=== PATIENT | male | born 1930 | race American Indian/Alaskan Native ===

== ENCOUNTER 2018-06-28 15:26 | Inpatient (IN) | payer MEDICARE ==
[2018-06-28] MEDS ORDERED: CARDIZEM IV ONE ×3 (17:01→19:08)
--- NOTE | 2018-06-28 17:02 | Emergency Department Report ---
ED General Adult HPI - General Chief complaint: Medical Clearance Stated complaint: WEAKNESS Time Seen by Provider: 06/28/18 16:54 Source: patient, EMS (ems notes not available at time of chart dictation) Mode of arrival: Stretcher Limitations: Other (patient is a poor historian) - History of Present Illness Initial comments: This is an 87-year-old gentleman. The patient is not known to this provider previously. He probably has a history of diabetes, GERD, hypertension, glaucoma, hemodialysis, Sunday. Unknown if he has a history of atrial fibrillation. The patient is sent to the ER by a local [facility] [place] [facility]. Apparently, the patient was recently placed in this [place] [facility], and they have been having issues setting of transportation for dialysis. The patient has apparently not had hemodialysis since Sunday. We do not know who his vet assistant is. The enclosed paperwork does not indicate to his vet assistant is. The patient has no complaints at this provider at this time, and is asking to eat. As per nursing documentation, there may have been facial trauma, in the past 3-4 days, but the patient makes no complaint of this at this time. At one point during his evaluation, he indicated abdominal discomfort but this subsequently resolved. Location: abdomen Quality: other Consistency: other Improves with: other Worsens with: other Associated Symptoms: confusion - Related Data Allergies Allergy/AdvReac Type Severity Reaction Status Date / Time No Known Allergies Allergy Unverified 06/28/18 16:17 ED Review of Systems ROS: Stated complaint: WEAKNESS Other details as noted in HPI Comment: Unobtainable due to pts medical conditions (patient is a poor historian.) Constitutional: denies: fever Gastrointestinal: abdominal pain ED Past Medical Hx - Past Medical History Hx Hypertension: Yes Hx Diabetes: Yes Hx GERD: Yes Hx Renal Disease: Yes (HD MWF) Additional medical history: glaucoma, hearing impaired, chronic respiratory failure - Social History Smoking Status: Former Smoker Substance Use Type: Alcohol ED Physical Exam - General Limitations: Other (patient is a poor historian) General appearance: alert, in no apparent distress - Head Head exam: Present: atraumatic, normocephalic - Eye Eye exam: Present: normal appearance, EOMI, other (there is no evidence of facial trauma. There is no periorbital tenderness. There is no ecchymosis. Irregular pupils noted bilaterally, evidence of chronic appearing cataract surgery noted.) - ENT ENT exam: Present: normal exam, normal orophraynx, mucous membranes moist, normal external ear exam - Neck Neck exam: Present: normal inspection, full ROM. Absent: tenderness, meningismus - Respiratory Respiratory exam: Present: normal lung sounds bilaterally. Absent: respiratory distress - Cardiovascular Cardiovascular Exam: Present: tachycardia, irregular rhythm, normal heart abel nds. Absent: systolic murmur, diastolic murmur, rubs, gallop - GI/Abdominal GI/Abdominal exam: Present: soft. Absent: distended, tenderness, guarding, rebound, rigid, pulsatile mass - Rectal Rectal exam: Present: deferred - Extremities Exam Extremities exam: Present: normal inspection, full ROM, pedal edema, other (2+ pulses noted in the bilateral upper, lower extremities. Compartments soft. No long bony tenderness. The pelvis is stable.). Absent: tenderness, calf tenderness - Back Exam Back exam: Present: normal inspection, full ROM. Absent: tenderness, CVA tenderness (R), paraspinal tenderness, vertebral tenderness - Neurological Exam Neurological exam: Present: alert, other (moving 4 extremities spontaneously. 5 out of 5 strength in 4 extremities. Sensation intact to light touch in 4 extremities. There is no facial droop.) - Psychiatric Psychiatric exam: Present: normal affect, normal mood - Skin Skin exam: Present: warm, dry, intact, normal color. Absent: rash ED Course Vital Signs 06/28/18 06/28/18 06/28/18 16:06 17:34 18:45 Temperature 98.7 F 98.9 F Pulse Rate 136 H 134 H Respiratory 18 Rate Blood Pressure 118/74 O2 Sat by Pulse 100 Oximetry 06/28/18 06/28/18 18:57 19:29 Temperature Pulse Rate 128 H 112 H Respiratory Rate Blood Pressure 106/52 O2 Sat by Pulse Oximetry - Reevaluation(s) Reevaluation #1: 06/28/18 19:12 Differential diagnosis, including not limited to: Pneumonia, urinary tract infection, electrolyte derangement, A. fib with RVR, intracranial abnormality, intra-abdominal infection, constipation Assessment and plan: 87-year-old gentleman on dialysis, with no supportive paperwork at this point in time, with the complaint of resolved abdominal pain. Patient is afebrile, with tachycardia, is found to be in A. fib with RVR. Tachycardia ranging from the 120s to 140s. Hemodynamically stable at this time. Asking to eat. No evidence of acute facial trauma or head trauma noted. No spinal tenderness. Laboratory studies reviewed and are remarkable for chronic renal insufficiency presumably, without concomitant hyperkalemia, or requirement for emergent dialysis at this time. Discussed with nephrology on-call, Dr. Evans, who agrees to follow in consultation and arrange inpatient routine dialysis. Patient received diltiazem IV, 10 mg 2 at this point in time. Heart rate currently 106-1 20 bpm. Additional IV diltiazem ordered, as well as oral diltiazem. Noncontrast CT scan of the brain is negative for acute traumatic disease, incidental ocular findings noted, likely chronic, and he can follow up with an outpatient vending route servicer for this. There is no physical exam evidence to suggest acute trauma or acute ocular decompensation at this time. Noncontrast CT scan of the abdomen and pelvis is pending at this time. Patient will require admission to the hospital for rate control, and further decision on systemic anticoagulation at this point in time. Nursing team has been instructed to obtain the patient's old medical records, medications, from his [facility] [place] [facility], and we are currently awaiting for these to arrive. Reevaluation #2: 06/28/18 19:[address] scan of the abdomen and pelvis to the [place] numerous chronic appearing findings, evidence of pulmonary vascular congestion, but no acute surgical disease. Patient in no acute distress, heart rate 98 bpm at this time, the patient is eating food comfortably. Hospital team was paged to arrange admi ssion. Reevaluation #3: 06/28/18 19:45 Dr Wagoner accepts to Dr Figueroa's service ED Medical Decision Making - Lab Data Result diagrams: 06/28/18 17:27 06/28/18 17:27 Vital Signs 06/28/18 06/28/18 06/28/18 16:06 17:34 18:45 Temperature 98.7 F 98.9 F Pulse Rate 136 H 134 H Respiratory 18 Rate Blood Pressure 118/74 O2 Sat by Pulse 100 Oximetry 06/28/18 18:57 Temperature Pulse Rate 128 H Respiratory Rate Blood Pressure O2 Sat by Pulse Oximetry Labs 06/28/18 06/28/18 06/28/18 17:27 17:27 17:27 WBC 6.5 RBC 4.04 Hgb 11.9 Hct 36.7 MCV 91 MCH 30 MCHC 33 RDW 16.5 H Plt Count 237 PT 17.2 H INR 1.36 H Sodium 137 Potassium 4.9 Chloride 94.5 L Carbon Dioxide 27 Anion Gap 20 BUN 69 H Creatinine 8.8 H Estimated GFR 7 BUN/Creatinine Ratio 8 Glucose 138 H Calcium 9.0 Magnesium 1.90 TSH Blood Type Antibody Screen 06/28/18 06/28/18 17:27 17:27 WBC RBC Hgb Hct MCV MCH MCHC RDW Plt Count PT INR Sodium Potassium Chloride Carbon Dioxide Anion Gap BUN Creatinine Estimated GFR BUN/Creatinine Ratio Glucose Calcium Magnesium TSH 1.030 Blood Type O POSITIVE Antibody Screen Negative - EKG Data -: EKG Interpreted by Me - EKG Data 06/28/18 19:15 Atrial fibrillation, rapid ventricular response, borderline left axis deviation, motion artifact, QTC prolonged, abnormal EKG, not morphologically consistent with ST elevation myocardial infarction. - Radiology Data Radiology results: report reviewed, image reviewed interpreted by me: X-ray of the chest shows pulmonary vascular congestion, pleural effusion, calcified aorta, cardiomegaly Noncontrast CT scan of the brain is negative for acute disease, chronic findings noted. Noncontrast CT scan of the abdomen and pelvis demonstrates no acute findings, congestive heart failure, bilateral pleural effusions, multiple other nonspecific chronic findings Critical Care Time: Yes Critical care time in (mins) excluding proc time.: 35 Critical care attestation.: If time is entered above; I have spent that time in minutes in the direct care of this critically ill patient, excluding procedure time. ED Disposition Clinical Impression: ESRD (end stage renal disease), Atrial fibrillation with RVR Disposition: OP ADMIT IP TO THIS HOSP Is pt being admited?: Yes Condition: Fair Referrals: PRIMARY CARE, [Primary Care Provider] - 3-5 Days
[2018-06-28 17:58] LABS: Hematocrit 36.7 % (35.5-45.6); Hemoglobin 11.9 gm/dl (11.8-15.2); Mean Corpuscular HGB Conc 33 % (32-34); Mean Corpuscular Volume 91 fl (84-94); Platelet Count 237 K/mm3 (140-440); Red Blood Count 4.04 M/mm3 (3.65-5.03); Red Cell Distribution Width 16.5 % (13.2-15.2)
[2018-06-28 18:07] LABS: INR 1.36 (0.87-1.13)
--- NOTE | 2018-06-28 19:02 | Cat Scan Report ---
FINAL REPORT EXAM: CT HEAD/BRAIN WO CON HISTORY: trauma a fib ams TECHNIQUE: Axial noncontrast CT images of the brain were performed. Total exam DLP 920.48 mGy-cm Comparison: None FINDINGS: Diffuse cortical and cerebellar atrophy. No acute extra-axial fluid collection or midline shift. No mass effect. Normal stacy-white differentia tion. Ex vacuo dilatation lateral ventricles likely related to small vessel ischemic disease. Bilateral basal ganglia mineralization, normal anatomic variant. Supraclinoid carotid calcification. Conjugate gaze. Bilateral scleral sophie. Orbital cones and apices are unremarkable. Pansinus opacification preserving none of the sinuses. No discrete mastoid effusion. IMPRESSION: No acute transcortical infarct, bleed, or mass identified. Cortical and central atrophy. Pansinus disease. Bilateral scleral bands. Extra linear density along the lateral right globe may represent slipped scl eral band. Correlate for additional surgery.
[2018-06-28] MEDS ORDERED: CARDIZEM PO ONE (19:08)
--- NOTE | 2018-06-28 19:33 | Cat Scan Report ---
FINAL REPORT EXAM: CT ABDOMEN PELVIS WO CON HISTORY: trauma a fib ams abdnpain TECHNIQUE: Axial images were performed from the lung bases to the pubic symphysis. Multiplanar refor mats are performed on the acquisition scanner. Total exam DLP 1007.73 mGy-cm Comparison: None FINDINGS: Moderate layering bilateral pleural effusions with subjacent consolidation. Lower lobe bronchial wall thickening. Mild cardiomegaly with trace pericardial effusion. Small hiatal hernia. Unremarkable unenhanced liver, spleen, pancreas, moderately distended gallbladder, bilateral adrenal glands. Nonspecific bilateral perinephric stranding. No hydronephrosis. Nonobstructive left lower pole renal 4 millimeter caliceal stone. Aorta is atheromatous but not aneurysmal. Motion degraded exam. No free air or free fluid. Moderate diffuse fecal retention. Prostate seeds. Urinary bladder is moderately distended. Mild presacral stranding. Mild body wall anasarca. Diffusely abnormal bones with what appears to be coarsening of the trabecula of the left hemipelvis s uggestive of Paget's disease. Multi focal lytic lesions of the lumbar spine may represent degenerative process versus Paget's versu s metastatic disease from prostate cancer. No compression fracture. IMPRESSION: Findings compatible with congestive heart failure with pleural effusions. Lower lobe diffuse bronchia l wall thickening may be related to pulmonary vascular congestion or a separate viral bronchitis, inc ompletely assessed. Recommend chest x-ray, two views. History of prostate cancer with prostate seeds. 4 millimeter left lower pole renal nonobstructive caliceal stone. No hydronephrosis. Motion degraded exam with no definite evidence for bowel obstruction. No free fluid or free air. 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 There may be Paget' s of the spine versus multilevel degenerative disease with small Schmorl's nodes, less likely metasta tic prostate disease. Correlate with PSA. Type of trauma is unknown. No rib or vertebral fractures identified.
[2018-06-28] MEDS ORDERED: BABY ASPIRIN PO ONE (19:36)
--- NOTE | 2018-06-28 20:18 | XRay Report ---
FINAL REPORT EXAM: XR CHEST 1V AP HISTORY: cough a fib w rvr TECHNIQUE: AP portable view of the chest PRIORS: None. FINDINGS: Lines, tubes, and devices: N/A Lungs and pleura: Trachea is normal in position. Small left pleural effusion is noted. Cardiomediastinal silhouette: Heart is markedly enlarged. Calcification of the aortic arch is noted. Other: Bony structures are intact. IMPRESSION: Cardiomegaly and small left effusion
--- NOTE | 2018-06-28 22:56 | History and Physical Report ---
History of Present Illness Date of examination: 06/28/18 Date of admission: 06/28/18 19:45 History of present illness: This is a 87-year-old man with a history of hypertension, diabetes, end-stage renal disease was sent to the emergency room for evaluation. He states that he had not had dialysis and 1 week. In the emergency room he was found to be in A. fib with RVR, responsive to Cardizem, unclear if this is new Review of systems Constitutional: no weight loss, chills, fever Ears, eyes, nose, mouth and throat: no nasal congestion, no nasal discharge, no sinus pressure, no vision change, no red eye. Neck: No neck pain or rigidity. Cardiovascular: no palpitations, chest pain Respiratory: no cough, shortness of breath Gastrointestinal: no hematochezia, abdominal pain Genitourinary : no frequency , no hematuria Musculoskeletal: no joint swelling or muscle ache Integumentary: no rash, no pruritis Neurological: no parathesias, no focal weakness Endocrine: no cold or heat intolerance, no polyuria or polydipsia Hematologic/Lymphatic: no easy bruising, no easy bleeding, no gland swelling Allergic/Immunologic: no urticaria, no angioedema. PAST MEDICAL HISTORY: hypertension, diabetes, end-stage renal disease PAST SURGICAL HISTORY: Unknown SOCIAL HISTORY: Denies alcohol, drugs, tobacco FAMILY HISTORY: Unknown Medications and Allergies Allergies Allergy/AdvReac Type Severity Reaction Status Date / Time No Known Allergies Allergy Unverified 06/28/18 16:17 Exam - Physical Exam Narrative exam: General Apperance: The patient lying in bed, breathing comfortable HEENT: Normocephalic, atraumatic. Pupils equally round and reactive to light, EOMI, no sclericterus or JVD or thyromegaly or nodule. , no carotid bruit, mucous membranes moist, no exudate or erythema Heart: S1-S2, regular is rhythm Lungs: Clear to auscultation bilaterally, breathing comfortable Abdomen: Positive bowel sounds, soft, nontender, nondistended, no organomegaly Extremities: No edema cyanosis clubbing Skin: no rash, nodule, warm and dry Neuro: cranial nerves 2-12 intact, speech is fluent, motor/sensory intact - Constitutional Vitals: Temp Pulse Resp BP Pulse Ox 98.9 F 96 H 20 116/51 100 06/28/18 18:45 06/28/18 20:01 06/28/18 20:08 06/28/18 20:01 06/28/18 20:08 Results - Labs CBC & Chem 7: 06/28/18 17:27 06/28/18 17:27 Labs: Abnormal lab results 06/28/18 06/28/18 06/28/18 Range/Units 17:27 17:27 17:27 RDW 16.5 H (13.2-15.2) % PT 17.2 H (12.2-14.9) Sec. INR 1.36 H (0.87-1.13) Chloride 94.5 L (98-107) mmol/L BUN 69 H (9-20) mg/dL Creatinine 8.8 H (0.8-1.5) mg/dL Glucose 138 H (75-100) mg/dL - Imaging and Cardiology EKG: image reviewed Chest x-ray: report reviewed CT scan - abdomen: report reviewed CT Scan - head: report reviewed CT scan - pelvis: report reviewed Assessment and Plan Assessment A. fib with RVR Fluid overload End-stage renal disease on dialysis Hypertension Diabetes Plan Admit to medicine Check cardiac enzymes, echo, consult cardiology Chest consult renal for dialysis Check fingersticks and initiate insulin sliding scale DVT prophylaxis
[2018-06-29] MEDS ORDERED: SODIUM CHLORIDE FLUSH SYRINGE 10 ML IV PRN (01:39)
[2018-06-29] MEDS ORDERED: TYLENOL PO PRN (01:39)
[2018-06-29] MEDS ORDERED: ZOFRAN IV PRN (01:39)
[2018-06-29 07:17] LABS: Bacteria,Urine 1+ /HPF (Negative); Bilirubin,Urine NEG (Negative); Blood,Urine NEG (Negative); Color,Urine Yellow (Yellow); Hyaline Casts,Urine 1 /LPF; Mucus,Urine FEW /HPF; Urobilinogen,Urine < 2.0 mg/dL (<2.0)
[2018-06-29] MEDS ORDERED: NACL 0.9% 100 ML IV PRN (09:54)
[2018-06-29] MEDS: SODIUM CHLORIDE FLUSH SYRINGE 10 ML IV SCH (10:00)
--- NOTE | 2018-06-29 11:11 | Consultation ---
History of Present Illness - Reason for Consult Consult date: 06/29/18 end stage renal disease Requesting physician: PRATIK NORTON - History of Present Illness 7-year-old male with history of diabetes mellitus, hypertension, complicated by end-stage renal disease on hemodialysis. Patient says he's been on Dialysis for at least 6 years. He is now living at a personal [facility]. He says he dialyzes at [facility] in [facility]. Patient has not been to dialysis for about a week now and complains of abdominal pain. On presenting to the ER and was found to be in Atrial fibrilation with rapid ventricular rate of 120s to 140s. I'm consulted to provide dialysis and manage fluid and electrolyte abnormalities. Patient is a poor historian. He says I can see and can't drive. He does not like the way he is treated at the personal chcf. Patient does not know the name of his licensed real estate broker or the dialysis clinic. He also does not have information about the personal [facility] where he currently lives Past History Past Medical History: diabetes, ESRD, GERD, hypertension Past Surgical History: Other (permacath placement, right upper extremity AV fistula) Social history: lives with family (was living with the but she is now in a Coma at a penitentiary and he is in a penitentiary also), alcohol abuse (occasionally drinks beer and wine), other (retired trucker hand). denies: smoking Family history: diabetes (mother), other (patient does not know the cause of of his father and all his siblings who are also ) Medications and Allergies Allergies Allergy/AdvReac Type Severity Reaction Status Date / Time No Known Allergies Allergy Unverified 06/28/18 16:17 Home Medications Medication Instructions Recorded Confirmed Last Taken Type Unobtainable 06/29/18 06/29/18 Unknown History Active Meds: Active Medications Acetaminophen (Tylenol) 650 mg PO Q4H PRN PRN Reason: Pain MILD(1-3)/Fever >100.5/KEVIN Heparin Sodium (Porcine) (Heparin 10,000 Units/10 Ml) 1,000 unit IV LAZARA PRN PRN Reason: hemodialysis Sodium Chloride (Nacl 0.9%) 100 mls @ 999 mls/hr IV LAZARA PRN PRN Reason: Hypotension Ondansetron HCl (Zofran) 4 mg IV Q8H PRN PRN Reason: Nausea And Vomiting Sodium Chloride (Sodium Chloride Flush Syringe 10 Ml) 10 ml IV BID JOSE ARMANDO Sodium Chloride (Sodium Chloride Flush Syringe 10 Ml) 10 ml IV PRN PRN PRN Reason: LINE FLUSH Review of Systems All systems: negative (Constitutional: no fever or chills. No anorexia or weight loss. HEENT: No sore throat or sinus drainage vision is impaired . Cardiovascular: No chest pain but admits to occasional shortness of breath. No palpitations, lower extremity swelling or dizziness. Respiratory: Admits to cough productive of mucus. No hemoptysis or wheezing. Gastrointestinal: No n ausea, vomiting, diarrhea, abdominal pain, hematemesis or melena. Genitourinary: He makes little bit of urine. No frequency urgency but admits to occasional dysuria. No hematuria. hematologic: No abnormal bleeding or bruising. Integumentary: no pruritus or rash. Neurological: Admits to headache no focal weakness or numbness, no syncope or seizures. Musculoskeletal: Admits to joint pain and stiffness. Psychiatry: no anxiety or depression) Exam - Vital Signs Vital signs: Vital Signs Temp Pulse Resp BP Pulse Ox 98.7 F 136 H 18 118/74 100 06/28/18 16:06 06/28/18 16:06 06/28/18 16:06 06/28/18 16:06 06/28/18 16:06 - Physical Exam Narrative exam: Elderly -[place] male lying in bed in no acute distress HEENT: NCAT, pink oral mucous membrane, bilateral blindness with corneal opacity Neck: Supple, no venous distention CVS: S1S2 RRR with no murmur, rub or gallop Chest: Clear to auscultation Abdomen: Protuberant, soft, nontender, no organomegaly, bowel sounds are present Extremities: Mild edema Genitourinary: deferred, skin: Warm and dry, no rash Neuro: Awake, alert no focal deficits Results - Lab Results 06/28/18 17:27 06/28/18 17:27 Most recent lab results Calcium 9.0 mg/dL (8.4-10.2) 06/28/18 17:27 Magnesium 1.90 mg/dL (1.7-2.3) 06/28/18 17:27 Assessment and Plan - Patient Problems (1) ESRD (end stage renal disease) Current Visit: Yes Status: Acute Plan to address problem: Hemodialysis this morning. Reevaluate thereafter. Need to find out more information about his licensed real estate broker and /or outpatient dialysis clinic (2) Hypertensive chronic kidney disease with stage 5 chronic kidney disease or end stage renal disease Current Visit: Yes Status: Acute Plan to address problem: Follow-up blood pressure, and medications (3) Type 2 diabetes mellitus with diabetic chronic kidney disease Current Visit: Yes Status: Acute Plan to address problem: Blood sugar management by primary attending (4) GERD (gastroesophageal reflux disease) Current Visit: Yes Status: Acute Plan to address problem: Continue proton pump inhibitor as needed and follow (5) Atrial fibrillation with RVR Current Visit: Yes Status: Acute Plan to address problem: Rate control by pesticide control inspector.
[2018-06-29] MEDS ORDERED: XYLOCAINE TOPICAL 2% 30ML TP ONE (11:23)
[2018-06-29] MEDS: HEPARIN 10,000 UNITS/10 ML IV PRN (15:00)
[2018-06-29] MEDS ORDERED: NACL 0.9 (PRIMING MACHINE ONLY DIALYSIS) MC ONE (15:56)
--- NOTE | 2018-06-29 16:43 | Consultation ---
History of Present Illness Consult date: 06/29/18 Requesting physician: ASHLYN QUARLES Consult reason: atrial fibrillation History of present illness: 87 Male who resides in a personal [facility] and [facility] presented to [facility] emergency department with generalized weakness. The patient was brought in by the emergency medical services and most of his past medical history was not obtainable. Of note the patient does have a past medical history of end-stage renal disease on dialysis for several years. Today he reports to me that his last dialysis was on Sunday of this week. He also has a past medical history apparently of hypertension, diabetes, GERD, and glaucoma. The patient reports to me that he was placed in a usp by his daughter at the usp was unable to afford medication or food. It is unclear to me the patient has mild dementia or not. In the emergency department the patient had a CAT scan of the abdomen and pelvis completed which revealed a nonobstructive kidney stone no acute abnormalities. A head CT was negative for any acute abnormalities. A chest x-ray revealed a small left pleural effusion. In the emergency department the patient was noted to be in atrial fibrillation with a rapid ventricular response. Today dialysis the patient has a temperature of 100.4 Past History Past Medical History: diabetes, ESRD, GERD, hypertension Past Surgical History: Other (permacath placement, right upper extremity AV fistula) Social history: lives with family (was living with the but she is now in a Coma at a usp and he is in a usp also), alcohol abuse (occasionally drinks beer and wine), other (retired fuel truck driver). denies: smoking Family history: diabetes (mother), other (patient does not know the cause of of his father and all his siblings who are also ) Medications and Allergies Allergies Allergy/AdvReac Type Severity Reaction Status Date / Time No Known Allergies Allergy Unverified 06/28/18 16:17 Home Medications Medication Instructions Recorded Confirmed Last Taken Type Unobtainable 06/29/18 06/29/18 Unknown History Active Meds: Active Medications Acetaminophen (Tylenol) 650 mg PO Q4H PRN PRN Reason: Pain MILD(1-3)/Fever >100.5/KEVIN Heparin Sodium (Porcine) (Heparin 10,000 Units/10 Ml) 1,000 unit IV LAZARA PRN PRN Reason: hemodialysis Sodium Chloride (Nacl 0.9%) 100 mls @ 999 mls/hr IV LAZARA PRN PRN Reason: Hypotension Ondansetron HCl (Zofran) 4 mg IV Q8H PRN PRN Reason: Nausea And Vomiting Sodium Chloride (Sodium Chloride Flush Syringe 10 Ml) 10 ml IV BID JOSE ARMANDO Last Admin: 06/29/18 10:00 Dose: 10 ml Documented by: Sodium Chloride (Sodium Chloride Flush Syringe 10 Ml) 10 ml IV PRN PRN PRN Reason: LINE FLUSH Review of Systems Constitutional: fever, no chills, no night sweats Ears, nose, mouth and throat: decreased hearing, no ear pain, no tinnitis Cardiovascular: no chest pain, no orthopnea, no palpitations, no edema, no syncope Respiratory: no cough, no excessive sputum, no hemoptysis, no shortness of breath Gastrointestinal: no abdominal pain, no nausea, no vomiting Genitourinary Male: no dysuria, no hematuria Musculoskeletal: no neck stiffness, no neck pain Integumentary: no rash, no pruritis Neurological: weakness Endocrine: no heat intolerance, no polyphagia Hematologic/Lymphatic: no easy bruising, no easy bleeding Allergic/Immunologic: no allergic rhinitis, no wheezing Physical Examination Vital Signs Temp Pulse Resp BP Pulse Ox 98.7 F 136 H 18 118/74 100 06/28/18 16:06 06/28/18 16:06 06/28/18 16:06 06/28/18 16:06 06/28/18 16:06 General appearance: no acute distress HEENT: Positive: PERRL Neck: Positive: neck supple, trachea midline Cardiac: Positive: Irregularly Regular, Tachycardia Lungs: Positive: Decreased Breath Sounds Abdomen: Positive: Soft. Negative: Tender, Distended Male genitourinary: Positive: deferred Skin: Negative: Rash, Suspicious Lesions Extremities: Present: warm. Absent: edema Results 06/28/18 17:27 06/28/18 17:27 Coagulation 06/28/18 Range/Units 17:27 PT 17.2 H (12.2-14.9) Sec. INR 1.36 H (0.87-1.13) CBC 06/28/18 Range/Units 17:27 WBC 6.5 (4.5-11.0) K/mm3 RBC 4.04 (3.65-5.03) M/mm3 Hgb 11.9 (11.8-15.2) gm/dl Hct 36.7 (35.5-45.6) % Plt Count 237 (140-440) K/mm3 Comprehensive Metabolic Panel 06/28/18 Range/Units 17:27 Sodium 137 (137-145) mmol/L Potassium 4.9 (3.6-5.0) mmol/L Chloride 94.5 L (98-107) mmol/L Carbon Dioxide 27 (22-30) mmol/L BUN 69 H (9-20) mg/dL Creatinine 8.8 H (0.8-1.5) mg/dL Glucose 138 H (75-100) mg/dL Calcium 9.0 (8.4-10.2) mg/dL - Imaging and Cardiology Echo: report reviewed (ECHO 07/13: RG 30-35%, mod LVH) EKG interpretations - Telemetry EKG Rhythm: Atrial Fibrillation Assessment and Plan Atrial fibrillation RVR recommend start low dose beta christa 25 Q6 for rate control No oral anticoagulation for now given unknown medical history Fever 100.4 ( at dialysis) Cardiomyopathy EF 30-35% start low dose beta christa will discuss ANNE MARIE with renal team (unless contraindicated or allergy) Moderatel LVH ESRD/HD DM GERD Glaucoma
[2018-06-29 18:08] LABS: Calcium 8.5 mg/dL (8.4-10.2)
--- NOTE | 2018-06-29 18:08 | Progress Note ---
Assessment and Plan A. fib with RVR - start low dose beta christa 25 Q6 for rate control - No oral anticoagulation for now given unknown medical history - Cardiology consult, will follow 2-D echo Fluid overload, due to missing dialysis - Nephrology consulted End-stage renal disease on dialysis -HD per renal Hypertension, continue metoprolol for now Diabetes, SSI and consistent carb diet Fever 100.4 ( at dialysis), continue to monitor, obtain blood culture Cardiomyopathy EF 30-35% - start low dose beta christa, aspirin, statin GERD, continue PPI Glaucoma, will get home medication list to start the eyedrops Brief history: This is a 87-year-old man with a history of hypertension, diabetes, end-stage renal disease was sent to the emergency room for evaluation. He states that he had not had dialysis and 1 week. In the emergency room he was found to be in A. fib with RVR, responsive to Cardizem. Patient was admitted for further evaluation and management. Physical exam: GENERAL: well-developed and well-nourished -N[place]alese male lying on bed appeared to be in no discomfort. HEENT: Normocephalic. Atraumatic. No conjunctival congestion or icterus. Patient has moist mucous membranes. 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 Trachea midline. CHEST/LUNGS: Clear to auscultated bilaterally, breathing nonlabored. No wheezes crackles or rhonchi. HEART/CARDIOVASCULAR: Regular in rate and rhythm. S1 and S2 positive. ABDOMEN: Abdomen is soft, nontender. Patient has normal bowel sounds. SKIN: There is no rash. Warm and dry. NEURO: No focal motor deficit. Follows command. MUSCULOSKELETAL: No joint effusion or tenderness. EXTRIMITY: No edema, no cyanosis or clubbing. PSYCH: Cooperative. Subjective Date of service: 06/29/18 Interval history: Patient seen and examined. Medical records and medication list reviewed. No acute event overnight noted by the RN. Patient denies any chest pain or difficulty breathing. Patient has gone through emergent tasty today. Patient is tolerating diet. Discussed plan of care at bedside with patient. Objective - Constitutional Vitals: Vital Signs - 12hr 06/29/18 06/29/18 06/29/18 08:51 15:00 15:15 Temperature 97.9 F 100.4 F H Pulse Rate 109 H 143 H 165 H Respiratory 18 16 Rate Blood Pressure 124/56 142/69 131/77 O2 Sat by Pulse 100 Oximetry 06/29/18 06/29/18 06/29/18 15:30 15:45 16:00 Temperature Pulse Rate 117 H 120 H 141 H Respiratory Rate Blood Pressure 147/71 125/73 120/97 O2 Sat by Pulse Oximetry 06/29/18 06/29/18 06/29/18 16:15 16:30 17:00 Temperature Pulse Rate 117 H 118 H 131 H Respiratory Rate Blood Pressure 104/74 101/82 115/79 O2 Sat by Pulse Oximetry - Labs CBC & Chem 7: 06/30/18 00:19 06/29/18 17:35 Labs: Abnormal lab results 06/28/18 06/28/18 06/29/18 Range/Units 17:27 17:27 05:30 PT 17.2 H (12.2-14.9) Sec. INR 1.36 H (0.87-1.13) Chloride 94.5 L (98-107) mmol/L BUN 69 H (9-20) mg/dL Creatinine 8.8 H (0.8-1.5) mg/dL Glucose 138 H (75-100) mg/dL POC Glucose 167 H (70-105) 06/29/18 Range/Units 11:20 PT (12.2-14.9) Sec. INR (0.87-1.13) Chloride (98-107) mmol/L BUN (9-20) mg/dL Creatinine (0.8-1.5) mg/dL Glucose (75-100) mg/dL POC Glucose 200 H (70-105)
[2018-06-29 18:26] LABS: Creatine Kinase MB 1.4 ng/mL (0.0-4.0)
[2018-06-29 19:01] LABS: Chol/HDL Ratio 3.38 %
[2018-06-29 19:02] LABS: Hepatitis B Surface Antigen Non-Reactive (Negative); Hepatitis C Virus Antibody Non-Reactive (NonReactive)
[2018-06-30] MEDS: SODIUM CHLORIDE FLUSH SYRINGE 10 ML IV SCH ×3 (00:49→22:00)
[2018-06-30] MEDS: LOPRESSOR PO SCH ×3 (00:49→09:40)
[2018-06-30 01:00] LABS: Basophils % (Auto) 0.3 % (0.0-1.8); Eosinophils # (Auto) 0.1 K/mm3 (0.0-0.4); Eosinophils % (Auto) 1.7 % (0.0-4.3); Hematocrit 31.5 % (35.5-45.6); Hemoglobin 10.4 gm/dl (11.8-15.2); Lymphocytes # (Auto) 0.6 K/mm3 (1.2-5.4); Lymphocytes % (Auto) 10.7 % (13.4-35.0); Mean Corpuscular HGB Conc 33 % (32-34); Mean Corpuscular Volume 89 fl (84-94); Monocytes # (Auto) 0.7 K/mm3 (0.0-0.8); Monocytes % (Auto) 11.7 % (0.0-7.3); Platelet Count 228 K/mm3 (140-440); Red Blood Count 3.52 M/mm3 (3.65-5.03); Red Cell Distribution Width 16.4 % (13.2-15.2)
--- NOTE | 2018-06-30 13:15 | Progress Note ---
Assessment and Plan Atrial fibrillation RVR Review records from hospitalization at [facility] in March 2018. A reveal that the patient does not respond PO metoprolol. Start Cardizem. The patient was actually discharged March 2018 on diltiazem and oral anticoagulation with warfarin. Fever 100.4 ( at dialysis) afebrile overnight Cardiomyopathy EF 30-35% Moderatel LVH ESRD/HD DM GERD Glaucoma Subjective Date of service: 06/30/18 Principal diagnosis: atrial fibrillation rapid ventricular response Interval history: Patient is sitting up in bed without any complaints of chest pain, shortness breath, or palpitations. The patient's biggest complaint is that he needs some decent food to eat. Objective Vital Signs Temp Pulse Resp BP Pulse Ox 06/30/18 09:14 72 18 156/49 97 06/30/18 05:00 90 94 06/30/18 04:48 97.7 F 14 123/75 06/29/18 22:24 97.1 F L 99 H 16 124/71 99 06/29/18 21:00 130 H 06/29/18 19:18 99.9 F H 93 H 18 101/46 100 06/29/18 18:15 116 H 121/84 06/29/18 18:00 99.5 F 116 H 18 121/84 06/29/18 17:45 139 H 116/83 06/29/18 17:30 111 H 99/31 06/29/18 17:15 131 H 119/80 06/29/18 17:00 131 H 115/79 06/29/18 16:30 118 H 101/82 06/29/18 16:15 117 H 104/74 06/29/18 16:00 141 H 120/97 06/29/18 15:45 120 H 125/73 06/29/18 15:30 117 H 147/71 06/29/18 15:15 165 H 131/77 06/29/18 15:00 100.4 F H 143 H 16 142/69 - Physical Examination HEENT: Positive: PERRL Neck: Positive: neck supple, trachea midline Cardiac: Positive: irregularly irregular, Tachycardia Lungs: Positive: clear to auscultation, Normal Breath Sounds Neuro: Positive: Grossly Intact Abdomen: Positive: Soft. Negative: Tender, Distended Skin: Negative: Rash, Suspicious Lesions Extremities: Present: warm. Absent: edema - Labs and Meds Cardiac Enzymes 06/29/18 Range/Units 17:35 CK-MB (CK-2) 1.4 (0.0-4.0) ng/mL Lipids 06/29/18 Range/Units 17:35 Triglycerides 62 (2-149) mg/dL Cholesterol 149 (50-199) mg/dL HDL Cholesterol 44 (40-59) mg/dL Cholesterol/HDL Ratio 3.38 % CBC 06/30/18 Range/Units 00:19 WBC 5.7 (4.5-11.0) K/mm3 RBC 3.52 L (3.65-5.03) M/mm3 Hgb 10.4 L (11.8-15.2) gm/dl Hct 31.5 L (35.5-45.6) % Plt Count 228 (140-440) K/mm3 Lymph # 0.6 L (1.2-5.4) K/mm3 [place] # 0.7 (0.0-0.8) K/mm3 Eos # 0.1 (0.0-0.4) K/mm3 Baso # 0.0 (0.0-0.1) K/mm3 Comprehensive Metabolic Panel 06/29/18 Range/Units 17:35 Sodium 136 L (137-145) mmol/L Potassium 3.4 L D (3.6-5.0) mmol/L Chloride 95.1 L (98-107) mmol/L Carbon Dioxide 27 (22-30) mmol/L BUN 27 H (9-20) mg/dL Creatinine 3.7 H D (0.8-1.5) mg/dL Glucose 166 H (75-100) mg/dL Calcium 8.5 (8.4-10.2) mg/dL - Imaging and Cardiology EKG: image reviewed Echo: report reviewed (ECHO 07/13: RG 30-35%, mod LVH)
[2018-06-30] MEDS: CARDIZEM PO SCH ×2 (14:38→23:04)
[2018-06-30] MEDS: PROTONIX PO SCH (14:38)
[2018-06-30] MEDS: HEPARIN SUB-Q SCH ×2 (14:39→23:04)
[2018-06-30] MEDS: HALFPRIN EC PO SCH (14:39)
--- NOTE | 2018-06-30 14:55 | Progress Note ---
Assessment and Plan - Patient Problems (1) ESRD (end stage renal disease) Current Visit: Yes Status: Acute Plan to address problem: Hemodialysis on Sunday, Wednesdays and Fridays. (2) Hypertensive chronic kidney disease with stage 5 chronic kidney disease or end stage renal disease Current Visit: Yes Status: Acute Plan to address problem: Follow-up blood pressure on current medications (3) Type 2 diabetes mellitus with diabetic chronic kidney disease Current Visit: Yes Status: Acute Plan to address problem: Blood sugar management by primary attending (4) GERD (gastroesophageal reflux disease) Current Visit: Yes Status: Acute Plan to address problem: Continue proton pump inhibitor as needed and follow (5) Atrial fibrillation with RVR Current Visit: Yes Status: Acute Plan to address problem: Rate control by dot etcher apprentice. Subjective Date of service: 06/30/18 Principal diagnosis: atrial fibrillation rapid ventricular response Interval history: Patient seen lying in bed. He feels better today. Just had lunch Objective - Exam Narrative Exam: Elderly -[place] Islander male lying in bed in no acute distress HEENT: NCAT, pink oral mucous membrane, bilateral blindness with corneal opacity Neck: Supple, no venous distention CVS: S1S2 RRR with no murmur, rub or gallop Chest: Clear to auscultation Abdomen: Protuberant, soft, nontender, no organomegaly, bowel sounds are present Extremities: Mild edema Genitourinary: deferred, skin: Warm and dry, no rash Neuro: Awake, alert no focal deficits - Vital Signs Vital signs: Vital Signs - 12hr 06/30/18 06/30/18 06/30/18 04:48 05:00 09:14 Temperature 97.7 F Pulse Rate 90 72 Respiratory 14 18 Rate Blood Pressure 123/75 156/49 O2 Sat by Pulse 94 97 Oximetry - Lab 06/30/18 00:19 06/29/18 17:35 Most recent lab results Calcium 8.5 mg/dL (8.4-10.2) 06/29/18 17:35 Magnesium 1.90 mg/dL (1.7-2.3) 06/28/18 17:27 Medications & Allergies - Medications Allergies/Adverse Reactions: Allergies No Known Allergies Allergy (Unverified 06/28/18 16:17) Home Medications: Home Medications Medication Instructions Recorded Confirmed Last Taken Type Unobtainable 06/29/18 06/29/18 Unknown History Active Medications: Generic Name Dose Route Start Last Admin Trade Name Freq PRN Reason Stop Dose Admin Acetaminophen 650 mg 06/29/18 01:39 Tylenol PO Q4H PRN Pain MILD(1-3)/Fever >100.5/KEVIN Aspirin 81 mg 06/30/18 13:00 Halfprin Ec PO QDAY [facility] Atorvastatin Calcium 40 mg 06/30/18 22:00 Lipitor PO QHS [facility] Diltiazem HCl 60 mg 06/30/18 14:00 Cardizem PO Q8HR [facility] Heparin Sodium (Porcine) 1,000 unit 06/29/18 09:54 06/29/18 15:00 Heparin 10,000 Units/10 Ml IV 1,000 unit LAZARA PRN Administration hemodialysis Heparin Sodium (Porcine) 5,000 unit 06/30/18 13:00 Heparin SUB-Q Q12HR [facility] Sodium Chloride 100 mls @ 999 mls/hr 06/29/18 09:54 Nacl 0.9% IV LAZARA PRN Hypotension Ondansetron HCl 4 mg 06/29/18 01:39 06/29/18 20:13 Zofran IV 4 mg Q8H PRN Administration Nausea And Vomiting Pantoprazole Sodium 40 mg 06/30/18 13:00 Protonix PO QDAY [facility] Sodium Chloride 10 ml 06/29/18 10:00 06/30/18 09:41 Sodium Chloride Flush Syringe 10 Ml IV 10 ml BID JOSE ARMANDO Administration Sodium Chloride 10 ml 06/29/18 01:39 Sodium Chloride Flush Syringe 10 Ml IV PRN PRN LINE FLUSH
--- NOTE | 2018-06-30 16:10 | Progress Note ---
Assessment and Plan A. fib with RVR - start low dose beta christa 25 Q6 for rate control - No oral anticoagulation for now given unknown medical history - Cardiology consulted, will follow 2-D echo Fluid overload, due to missing dialysis - Nephrology consulted, s/p emergent HD End-stage renal disease on dialysis -HD per renal Hypertension, continue metoprolol for now Diabetes, SSI and consistent carb diet Fever 100.4 ( at dialysis), continue to monitor, obtain blood culture Cardiomyopathy EF 30-35% - start low dose beta christa, aspirin, statin GERD, continue PPI Glaucoma, will get home medication list to start the eyedrops Disposition: needs placement Brief history: This is a 87-year-old man with a history of hypertension, diabetes, end-stage renal disease was sent to the emergency room for evaluation. He states that he had not had dialysis and 1 week. In the emergency room he was found to be in A. fib with RVR, responsive to Cardizem. Patient was admitted for further evaluation and management. Physical exam: GENERAL: well-developed and well-nourished -[place] male lying on bed appeared to be in no discomfort. HEENT: Normocephalic. Atraumatic. No conjunctival congestion or icterus. Patient has moist mucous membranes. 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 Trachea midline. CHEST/LUNGS: Clear to auscultated bilaterally, breathing nonlabored. No wheezes crackles or rhonchi. HEART/CARDIOVASCULAR: Regular in rate and rhythm. S1 and S2 positive. ABDOMEN: Abdomen is soft, nontender. Patient has normal bowel sounds. SKIN: There is no rash. Warm and dry. NEURO: No focal motor deficit. Follows command. MUSCULOSKELETAL: No joint effusion or tenderness. EXTRIMITY: No edema, no cyanosis or clubbing. PSYCH: Cooperative. Subjective Date of service: 06/30/18 Principal diagnosis: atrial fibrillation rapid ventricular response Interval history: Patient seen and examined. Medical records and medication list reviewed. No acute event overnight noted by the RN. Patient denies any chest pain or difficulty breathing. Patient is tolerating diet. Discussed plan of care at bedside with patient. Objective - Constitutional Vitals: Vital Signs - 12hr 06/30/18 06/30/18 06/30/18 04:48 05:00 09:14 Temperature 97.7 F Pulse Rate 90 72 Respiratory 14 18 Rate Blood Pressure 123/75 156/49 O2 Sat by Pulse 94 97 Oximetry - Labs CBC & Chem 7: 06/30/18 00:19 07/01/18 06:01 Labs: Abnormal lab results 06/29/18 06/29/18 06/29/18 Range/Units 17:35 17:35 21:03 RBC (3.65-5.03) M/mm3 Hgb (11.8-15.2) gm/dl Hct (35.5-45.6) % RDW (13.2-15.2) % Lymph % (Auto) (13.4-35.0) % Banks % (Auto) (0.0-7.3) % Lymph # (1.2-5.4) K/mm3 Seg Neutrophils % (40.0-70.0) % Sodium 136 L (137-145) mmol/L Potassium 3.4 L D (3.6-5.0) mmol/L Chloride 95.1 L (98-107) mmol/L BUN 27 H (9-20) mg/dL Creatinine 3.7 H D (0.8-1.5) mg/dL Glucose 166 H (75-100) mg/dL POC Glucose 182 H (70-105) Total Creatine Kinase 36 L (55-170) units/L Troponin T 0.172 H* (0.00-0.029) ng/mL 06/30/18 06/30/18 06/30/18 Range/Units 00:19 05:33 14:54 RBC 3.52 L (3.65-5.03) M/mm3 Hgb 10.4 L (11.8-15.2) gm/dl Hct 31.5 L (35.5-45.6) % RDW 16.4 H (13.2-15.2) % Lymph % (Auto) 10.7 L (13.4-35.0) % Banks % (Auto) 11.7 H (0.0-7.3) % Lymph # 0.6 L (1.2-5.4) K/mm3 Seg Neutrophils % 75.6 H (40.0-70.0) % Sodium (137-145) mmol/L Potassium (3.6-5.0) mmol/L Chloride (98-107) mmol/L BUN (9-20) mg/dL Creatinine (0.8-1.5) mg/dL Glucose (75-100) mg/dL POC Glucose 185 H (70-105) Total Creatine Kinase (55-170) units/L Troponin T 0.132 H* D (0.00-0.029) ng/mL
[2018-07-01] MEDS: CARDIZEM PO SCH ×3 (06:24→22:21)
[2018-07-01] MEDS: HEPARIN SUB-Q SCH ×2 (09:22→22:21)
[2018-07-01] MEDS: PROTONIX PO SCH (09:22)
[2018-07-01] MEDS: HALFPRIN EC PO SCH (09:22)
[2018-07-01] MEDS: SODIUM CHLORIDE FLUSH SYRINGE 10 ML IV SCH ×2 (09:23→22:22)
--- NOTE | 2018-07-01 09:29 | Progress Note ---
Assessment and Plan - Patient Problems (1) ESRD (end stage renal disease) Current Visit: Yes Status: Acute Plan to address problem: Hemodialysis on Sunday, Wednesdays and Fridays. (2) Hypertensive chronic kidney disease with stage 5 chronic kidney disease or end stage renal disease Current Visit: Yes Status: Acute Plan to address problem: Follow-up blood pressure on current medications (3) Type 2 diabetes mellitus with diabetic chronic kidney disease Current Visit: Yes Status: Acute Plan to address problem: Blood sugar management by primary attending (4) GERD (gastroesophageal reflux disease) Current Visit: Yes Status: Acute Plan to address problem: Continue proton pump inhibitor as needed and follow (5) Atrial fibrillation with RVR Current Visit: Yes Status: Acute Plan to address problem: Rate control by button breaker. (6) Poor social situation Current Visit: Yes Status: Acute Plan to address problem: Case managemer to assess patient's home situation. Appears to be less than optimal and patient may need placement Subjective Date of service: 07/01/18 Principal diagnosis: atrial fibrillation rapid ventricular response Interval history: Patient seen lying in bed. He has no complaints this morning. A bit disoriented regarding place Objective - Exam Narrative Exam: Elderly -[place]er male lying in bed in no acute distress HEENT: NCAT, pink oral mucous membrane, bilateral blindness with corneal opacity Neck: Supple, no venous distention CVS: S1S2 RRR with no murmur, rub or gallop Chest: Clear to auscultation Abdomen: Protuberant, soft, nontender, no organomegaly, bowel sounds are present Extremities: Mild edema Genitourinary: deferred, skin: Warm and dry, no rash Neuro: Awake, alert no focal deficits - Vital Signs Vital signs: Vital Signs - 12hr 06/30/18 06/30/18 06/30/18 22:00 23:04 23:14 Temperature 98.2 F Pulse Rate 97 H 121 H Respiratory 18 Rate Respiratory 18 Rate [Face] Blood Pressure 156/59 142/61 O2 Sat by Pulse 100 Oximetry 07/01/18 07/01/18 07/01/18 03:57 06:24 08:28 Temperature 98.8 F 98.0 F Pulse Rate 96 H 96 H 94 H Respiratory 17 20 Rate Respiratory Rate [Face] Blood Pressure 139/61 139/61 116/58 O2 Sat by Pulse 100 98 Oximetry - Lab 06/30/18 00:19 06/29/18 17:35 Most recent lab results Calcium 8.5 mg/dL (8.4-10.2) 06/29/18 17:35 Magnesium 1.90 mg/dL (1.7-2.3) 06/28/18 17:27 Medications & Allergies - Medications Allergies/Adverse Reactions: Allergies No Known Allergies Allergy (Unverified 06/28/18 16:17) Home Medications: Home Medications Medication Instructions Recorded Confirmed Last Taken Type Unobtainable 06/29/18 06/29/18 Unknown History Active Medications: Generic Name Dose Route Start Last Admin Trade Name Freq PRN Reason Stop Dose Admin Acetaminophen 650 mg 06/29/18 01:39 Tylenol PO Q4H PRN Pain MILD(1-3)/Fever >100.5/KEVIN Aspirin 81 mg 06/30/18 13:00 07/01/18 09:22 Halfprin Ec PO 81 mg QDAY JOSE ARMANDO Administration Atorvastatin Calcium 40 mg 06/30/18 22:00 06/30/18 23:04 Lipitor PO 40 mg QHS JOSE ARMANDO Administration Diltiazem HCl 60 mg 06/30/18 14:00 07/01/18 06:24 Cardizem PO 60 mg Q8HR JOSE ARMANDO Administration Heparin Sodium (Porcine) 1,000 unit 06/29/18 09:54 06/29/18 15:00 Heparin 10,000 Units/10 Ml IV 1,000 unit LAZARA PRN Administration hemodialysis Heparin Sodium (Porcine) 5,000 unit 06/30/18 13:00 07/01/18 09:22 Heparin SUB-Q 5,000 unit Q12HR JOSE ARMANDO Administration Sodium Chloride 100 mls @ 999 mls/hr 06/29/18 09:54 Nacl 0.9% IV LAZARA PRN Hypotension Sodium Chloride 100 mls @ 999 mls/hr 07/01/18 09:25 Nacl 0.9% IV LAZARA PRN Hypotension Ondansetron HCl 4 mg 06/29/18 01:39 06/29/18 20:13 Zofran IV 4 mg Q8H PRN Administration Nausea And Vomiting Pantoprazole Sodium 40 mg 06/30/18 13:00 07/01/18 09:22 Protonix PO 40 mg QDAY JOSE ARMANDO Administration Sodium Chloride 10 ml 06/29/18 10:00 07/01/18 09:23 Sodium Chloride Flush Syringe 10 Ml IV 10 ml BID JOSE ARMANDO Administration Sodium Chloride 10 ml 06/29/18 01:39 Sodium Chloride Flush Syringe 10 Ml IV PRN PRN LINE FLUSH
[2018-07-01] MEDS ORDERED: NACL 0.9% 100 ML IV PRN (10:00)
[2018-07-01 10:27] LABS: Calcium 9.1 mg/dL (8.4-10.2)
--- NOTE | 2018-07-01 11:19 | Progress Note ---
Assessment and Plan Atrial fibrillation RVR --> CVR Cont cardizem. 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 Appears to be less than optimal and patient may need placement. The patient has been seen in conjunction with Dr. Wise who agrees with the assessment and plan of care. Subjective Date of service: 07/01/18 Principal diagnosis: atrial fibrillation rapid ventricular response Interval history: pt sitting at bedside, no current cardiac complaints. tele reviewed - in AFib HR 90s. Objective Last Vital Signs Temp 98.0 F 07/01/18 08:28 Pulse 94 H 07/01/18 08:28 Resp 20 07/01/18 08:28 BP 116/58 07/01/18 08:28 Pulse Ox 98 07/01/18 08:28 - Physical Examination General: No Apparent Distress HEENT: Positive: PERRL Neck: Positive: neck supple, trachea midline Cardiac: Positive: irregularly irregular, S1/S2 Lungs: Positive: Decreased Breath Sounds Neuro: Positive: Grossly Intact Abdomen: Positive: Soft. Negative: Tender, Distended Skin: Negative: Rash, Suspicious Lesions Extremities: Present: warm. Absent: edema - Labs and Meds Comprehensive Metabolic Panel 07/01/18 Range/Units 06:01 Sodium 137 (137-145) mmol/L Potassium 4.5 D (3.6-5.0) mmol/L Chloride 97.0 L (98-107) mmol/L Carbon Dioxide 20 L D (22-30) mmol/L BUN 46 H (9-20) mg/dL Creatinine 6.5 H D (0.8-1.5) mg/dL Glucose 101 H (75-100) mg/dL Calcium 9.1 (8.4-10.2) mg/dL - Imaging and Cardiology EKG: image reviewed Echo: report reviewed (ECHO 07/13: RG 30-35%, mod LVH) - Telemetry EKG Rhythm: Atrial Fibrillation
--- NOTE | 2018-07-01 15:18 | Discharge Summary ---
Providers - Providers Date of Admission: 06/28/18 19:45 Date of discharge: 07/05/18 Attending physician: ASHLYN QUARLES 06/28/18 17:00 Consult to Physician [CONS] Urgent Comment: Consulting Provider: BYRON TANG Physician Instructions: Reason For Exam: esrd 06/29/18 01:53 Consult to Physician [CONS] Routine Comment: Consulting Provider: CECIL WOODS Physician Instructions: Reason For Exam: afib 07/01/18 09:30 Consult to Case Management [CONS] Routine Services Needed at Discharge: Cyber Reverse Engineer Notified:: yes If yes, spoke with:: ren Comment:: Case managemer to assess patient's home situation. Appears to be less than Primary care physician: HELICOPTER TECHNICIAN Hospitalization Condition: Fair Pertinent studies: abdomen/pelvis CT CXR, head CT 2d echocardiogram Hospital course: Brief history: This is a 87-year-old man with a history of hypertension, diabetes, end-stage renal disease was sent to the emergency room for evaluation. He states that he had not had dialysis and 1 week. In the emergency room he was found to be in A. fib with RVR, responsive to Cardizem. Patient was admitted for further evaluation and management. Discharge diagnosis and management: A. fib with RVR - started on low dose beta christa metoprolol 25mg Q6 for rate control, then changed to cardizem 60mg q8h - No oral anticoagulation for given compliance issue, possible underlying dementia and risk of fall - Cardiology consulted, 2-D echo showed Ef 30-35% Fluid overload, due to missing dialysis and underlying CHF - Nephrology consulted, s/p emergent HD End-stage renal disease on dialysis -HD per renal Hypertension, continue Cardizem Diabetes, SSI and consistent carb diet Fever 100.4 ( at dialysis), resolved w/o abx Cardiomyopathy EF 30-35% - cont aspirin, statin GERD, continue PPI Glaucoma, asymptomatic, pt is legally blind Physical exam: GENERAL: well-developed and well-nourished -[place]old[place] male lying on bed appeared to be in no discomfort. HEENT: Normocephalic. Atraumatic. No conjunctival congestion or icterus. Patient has moist mucous membranes. 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 Trachea midline. CHEST/LUNGS: Clear to auscultated bilaterally, breathing nonlabored. No wheezes crackles or rhonchi. HEART/CARDIOVASCULAR: Regular in rate and rhythm. S1 and S2 positive. ABDOMEN: Abdomen is soft, nontender. Patient has normal bowel sounds. SKIN: There is no rash. Warm and dry. NEURO: No focal motor deficit. Follows command. MUSCULOSKELETAL: No joint effusion or tenderness. EXTRIMITY: No edema, no cyanosis or clubbing. PSYCH: Cooperative. Disposition: patient refused to go [facility], he wanted to go home but family stated that they are unable to take care for him and no one lives at his house now. 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 patient is legally blind and unable to do his ADL, but he was insisting to go home. Consulted psych to assess patient's medical decision making ability. Patient was evaluated by psych and they concluded that patient does have good conception about his disease process and understand the plan for disease management. Patient was then discharged home with his Son and family. Family stated they will make arrangement to take care of the patient. Disposition: DC/[place]- HOME UNDER HOME [facility] Time spent for discharge: 34 minutes Core Measure Documentation - Palliative Care Palliative Care/ Comfort Measures: Not Applicable - Core Measures Any of the following diagnoses?: history only Exam - Constitutional Vitals: Temp Pulse Resp BP Pulse Ox 98.0 F 94 H 20 116/58 98 07/01/18 08:28 07/01/18 08:28 07/01/18 08:28 07/01/18 08:28 07/01/18 08:28 Plan Activity: advance as tolerated Weight Bearing Status: Non-Weight Bearing Diet: renal Follow up with: PRIMARY CAREMD [Primary Care Provider] - 3-5 Days Prescriptions: AtorvaSTATin [Lipitor] 40 mg PO QHS #30 tablet ALPRAZolam [Xanax TAB] 0.5 mg PO TID PRN #14 tab PRN Reason: Agitation Aspirin EC [Aspirin Enteric Coated TAB] 81 mg PO QDAY #30 tablet dilTIAZem [Cardizem] 60 mg PO Q8HR #30 tablet Pantoprazole [Protonix TAB] 40 mg PO QDAY #30 tablet
[2018-07-01] MEDS ORDERED: NACL 0.9 (PRIMING MACHINE ONLY DIALYSIS) MC ONE (17:39)
[2018-07-02] MEDS: CARDIZEM PO SCH ×3 (05:39→22:46)
--- NOTE | 2018-07-02 08:50 | Progress Note ---
Assessment and Plan - Patient Problems (1) ESRD (end stage renal disease) Current Visit: Yes Status: Acute Plan to address problem: Hemodialysis on Sunday, Wednesdays and Fridays. (2) Hypertensive chronic kidney disease with stage 5 chronic kidney disease or end stage renal disease Current Visit: Yes Status: Acute Plan to address problem: Follow-up blood pressure on current medications (3) Type 2 diabetes mellitus with diabetic chronic kidney disease Current Visit: Yes Status: Acute Plan to address problem: Blood sugar management by primary attending (4) GERD (gastroesophageal reflux disease) Current Visit: Yes Status: Acute Plan to address problem: Continue proton pump inhibitor as needed and follow (5) Atrial fibrillation with RVR Current Visit: Yes Status: Acute Plan to address problem: Rate control by communications officer. (6) Poor social situation Current Visit: Yes Status: Acute Plan to address problem: Case managemer to assess patient's home situation. Appears to be less than optimal and patient may need placement Subjective Date of service: 07/02/18 Principal diagnosis: atrial fibrillation rapid ventricular response Interval history: Patient seen lying in bed. He has no complaints this morning. A bit disoriented regarding place Objective - Exam Narrative Exam: Elderly -Afghan male lying in bed in no acute distress HEENT: NCAT, pink oral mucous membrane, bilateral blindness with corneal opacity Neck: Supple, no venous distention CVS: S1S2 RRR with no murmur, rub or gallop Chest: Clear to auscultation Abdomen: Protuberant, soft, nontender, no organomegaly, bowel sounds are present Extremities: Mild edema Genitourinary: deferred, skin: Warm and dry, no rash Neuro: Awake, alert no focal deficits - Vital Signs Vital signs: Vital Signs - 12hr 07/01/18 22:55 Pulse Rate [ 101 H From Monitor] Respiratory 18 Rate O2 Sat by Pulse 96 Oximetry - Lab 06/30/18 00:19 07/01/18 06:01 Most recent lab results Calcium 9.1 mg/dL (8.4-10.2) 07/01/18 06:01 Magnesium 1.90 mg/dL (1.7-2.3) 06/28/18 17:27 Medications & Allergies - Medications Allergies/Adverse Reactions: Allergies No Known Allergies Allergy (Unverified 06/28/18 16:17) Home Medications: Home Medications Medication Instructions Recorded Confirmed Last Taken Type ALPRAZolam [Xanax TAB] 0.5 mg PO TID PRN #14 tab 07/01/18 Unknown Rx Aspirin EC [Aspirin Enteric Coated 81 mg PO QDAY #30 tablet 07/01/18 Unknown Rx TAB] AtorvaSTATin [Lipitor] 40 mg PO QHS #30 tablet 07/01/18 Unknown Rx Pantoprazole [Protonix TAB] 40 mg PO QDAY #30 tablet 07/01/18 Unknown Rx dilTIAZem [Cardizem] 60 mg PO Q8HR #30 tablet 07/01/18 Unknown Rx Active Medications: Generic Name Dose Route Start Last Admin Trade Name Freq PRN Reason Stop Dose Admin Acetaminophen 650 mg 06/29/18 01:39 Tylenol PO Q4H PRN Pain MILD(1-3)/Fever >100.5/KVEIN Aspirin 81 mg 06/30/18 13:00 07/01/18 09:22 Halfprin Ec PO 81 mg QDAY JOSE ARMANDO Administration Atorvastatin Calcium 40 mg 06/30/18 22:00 07/01/18 22:22 Lipitor PO Not Given QHS JOSE ARMANDO Diltiazem HCl 60 mg 06/30/18 14:00 07/02/18 05:39 Cardizem PO Not Given Q8HR JOSE ARMANDO Heparin Sodium (Porcine) 1,000 unit 06/29/18 09:54 06/29/18 15:00 Heparin 10,000 Units/10 Ml IV 1,000 unit LAZARA PRN Administration hemodialysis Heparin Sodium (Porcine) 5,000 unit 06/30/18 13:00 07/01/18 22:21 Heparin SUB-Q Not Given Q12HR JOSE ARMANDO Sodium Chloride 100 mls @ 999 mls/hr 07/01/18 10:00 Nacl 0.9% IV LAZARA PRN Hypotension Ondansetron HCl 4 mg 06/29/18 01:39 06/29/18 20:13 Zofran IV 4 mg Q8H PRN Administration Nausea And Vomiting Pantoprazole Sodium 40 mg 06/30/18 13:00 07/01/18 09:22 Protonix PO 40 mg QDAY JOSE ARMANDO Administration Sodium Chloride 10 ml 06/29/18 10:00 07/01/18 22:22 Sodium Chloride Flush Syringe 10 Ml IV Not Given BID JOSE ARMANDO Sodium Chloride 10 ml 06/29/18 01:39 Sodium Chloride Flush Syringe 10 Ml IV PRN PRN LINE FLUSH
--- NOTE | 2018-07-02 10:23 | Progress Note ---
Assessment and Plan A. fib with RVR - start low dose beta christa 25 Q6 for rate control, then changed to cardizem 60mg q8h - No oral anticoagulation for given compliance issue, possible underlying dementia and risk of fall - Cardiology consulted, 2-D echo showed Ef 30-35% Fluid overload, due to missing dialysis and underlying CHF - Nephrology consulted, s/p emergent HD End-stage renal disease on dialysis -HD per renal Hypertension, continue Cardizem Diabetes, SSI and consistent carb diet Fever 100.4 ( at dialysis), resolved, cont to monitor Cardiomyopathy EF 30-35% - cont aspirin, statin GERD, continue PPI Glaucoma, wait for home medication list to start the eyedrops, pt asymptomatic Disposition: at [facility] following HD Brief history: This is a 87-year-old man with a history of hypertension, diabetes, end-stage renal disease was sent to the emergency room for evaluation. He states that he had not had dialysis and 1 week. In the emergency room he was found to be in A. fib with RVR, responsive to Cardizem. Patient was admitted for further evaluation and management. Physical exam: GENERAL: well-developed and well-nourished -Tunisian male lying on bed appeared agitated. HEENT: Normocephalic. Atraumatic. No conjunctival congestion or icterus. Patient has moist mucous membranes. 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 Trachea midline. CHEST/LUNGS: Clear to auscultated bilaterally, breathing nonlabored. No wheezes crackles or rhonchi. HEART/CARDIOVASCULAR: Regular in rate and rhythm. S1 and S2 positive. ABDOMEN: Abdomen is soft, nontender. Patient has normal bowel sounds. SKIN: There is no rash. Warm and dry. NEURO: No focal motor deficit. Follows command. MUSCULOSKELETAL: No joint effusion or tenderness. EXTRIMITY: No edema, no cyanosis or clubbing. PSYCH: not Cooperative. does not like to be interrupted Subjective Date of service: 07/01/18 Principal diagnosis: atrial fibrillation rapid ventricular response Interval history: Patient seen and examined. Medical records and medication list reviewed. No acute event overnight noted by the RN. Patient is tolerating diet. Discussed plan of care at bedside with patient's Son. Planned to d/c today after HD, but patient became very agitated and HD was scheduled late afternoon Objective - Constitutional Vitals: Vital Signs - 12hr 07/01/18 07/02/18 22:55 09:15 Temperature 97.0 F L Pulse Rate 77 Pulse Rate [ 101 H From Monitor] Respiratory 18 20 Rate Blood Pressure 140/62 O2 Sat by Pulse 96 100 Oximetry - Labs CBC & Chem 7: 06/30/18 00:19 07/01/18 06:01 Labs: Abnormal lab results 07/01/18 Range/Units 06:01 Chloride 97.0 L (98-107) mmol/L Carbon Dioxide 20 L D (22-30) mmol/L BUN 46 H (9-20) mg/dL Creatinine 6.5 H D (0.8-1.5) mg/dL Glucose 101 H (75-100) mg/dL
--- NOTE | 2018-07-02 13:35 | Progress Note ---
Assessment and Plan Atrial fibrillation RVR --> CVR Cont cardizem. Pt does not appear to be a candidate for intermediate school teacher systemic AC given his dementia and history of noncompliance Cardiomyopathy EF 30-35% Moderatel LVH ESRD/HD DM GERD Glaucoma Poor social situation Case management to assess patient's home situation. Appears to be less than optimal and patient may need placement. Dementia Currently stable cardiac status. Pt may discharge from cardiology standpoint. Recommend pt follow up in our office with Chuyita Dacosta NP, within 1-2 weeks of hospital discharge ([phone]). The patient has been seen in conjunction with Dr. Wise who agrees with the a ssessment and plan of care. Subjective Date of service: 07/02/18 Principal diagnosis: atrial fibrillation rapid ventricular response Interval history: pt sitting at bedside, no current cardiac complaints. pt not wearing environmental monitoring specialist. Objective Last Vital Signs Temp 97.0 F L 07/02/18 09:15 Pulse 77 07/02/18 09:15 Resp 20 07/02/18 09:15 BP 140/62 07/02/18 09:15 Pulse Ox 100 07/02/18 09:15 - Physical Examination General: No Apparent Distress HEENT: Positive: PERRL Neck: Positive: neck supple, trachea midline Cardiac: Positive: irregularly irregular, S1/S2 Lungs: Positive: Decreased Breath Sounds Neuro: Positive: Grossly Intact Abdomen: Positive: Soft. Negative: Tender, Distended Skin: Negative: Rash, Suspicious Lesions Extremities: Present: warm. Absent: edema - Imaging and Cardiology EKG: image reviewed Echo: report reviewed (ECHO 07/13: RG 30-35%, mod LVH)
[2018-07-02] MEDS: XANAX PO PRN (14:00)
[2018-07-02] MEDS: HEPARIN SUB-Q SCH ×2 (18:14→22:48)
[2018-07-02] MEDS: HALFPRIN EC PO SCH (18:14)
[2018-07-02] MEDS: PROTONIX PO SCH (18:14)
[2018-07-02] MEDS: SODIUM CHLORIDE FLUSH SYRINGE 10 ML IV SCH ×2 (18:15→22:52)
[2018-07-03] MEDS: CARDIZEM PO SCH ×3 (06:08→21:27)
[2018-07-03] MEDS: HEPARIN SUB-Q SCH ×2 (10:20→21:23)
[2018-07-03] MEDS: XANAX PO PRN ×2 (10:23→23:42)
[2018-07-03] MEDS: SODIUM CHLORIDE FLUSH SYRINGE 10 ML IV SCH ×2 (12:14→21:29)
[2018-07-03] MEDS: XYLOCAINE TOPICAL 2% 30ML TP PRN (12:40)
--- NOTE | 2018-07-03 14:11 | Progress Note ---
Assessment and Plan - Patient Problems (1) ESRD (end stage renal disease) Current Visit: Yes Status: Acute Plan to address problem: Hemodialysis on Sunday, Wednesdays and Fridays. (2) Hypertensive chronic kidney disease with stage 5 chronic kidney disease or end stage renal disease Current Visit: Yes Status: Acute Plan to address problem: Follow-up blood pressure on current medications (3) Type 2 diabetes mellitus with diabetic chronic kidney disease Current Visit: Yes Status: Acute Plan to address problem: Blood sugar management by primary attending (4) GERD (gastroesophageal reflux disease) Current Visit: Yes Status: Acute Plan to address problem: Continue proton pump inhibitor as needed and follow (5) Atrial fibrillation with RVR Current Visit: Yes Status: Acute Plan to address problem: Rate control by machine stonecutter. (6) Poor social situation Current Visit: Yes Status: Acute Plan to address problem: Awaiting placement. Patient accepted at [facility] dialysis Subjective Date of service: 07/03/18 Principal diagnosis: atrial fibrillation rapid ventricular response Interval history: Patient seen lying in bed. He has no complaints Objective - Exam Narrative Exam: Elderly -[place]ese male lying in bed in no acute distress HEENT: NCAT, pink oral mucous membrane, bilateral blindness with corneal opacity Neck: Supple, no venous distention CVS: S1S2 RRR with no murmur, rub or gallop Chest: Clear to auscultation Abdomen: Protuberant, soft, nontender, no organomegaly, bowel sounds are present Extremities: No edema Genitourinary: deferred, skin: Warm and dry, no rash Neuro: Awake, alert no focal deficits - Vital Signs Vital signs: Vital Signs - 12hr 07/03/18 07/03/18 07/03/18 06:07 06:08 08:19 Temperature 97.3 F L Pulse Rate 96 H 86 93 H Respiratory 20 24 Rate Blood Pressure 100/53 100/53 110/53 O2 Sat by Pulse 98 98 Oximetry 07/03/18 10:00 Temperature Pulse Rate 93 H Respiratory Rate Blood Pressure O2 Sat by Pulse 98 Oximetry - Lab 06/30/18 00:19 07/01/18 06:01 Most recent lab results Calcium 9.1 mg/dL (8.4-10.2) 07/01/18 06:01 Magnesium 1.90 mg/dL (1.7-2.3) 06/28/18 17:27 Medications & Allergies - Medications Allergies/Adverse Reactions: Allergies No Known Allergies Allergy (Unverified 06/28/18 16:17) Home Medications: Home Medications Medication Instructions Recorded Confirmed Last Taken Type ALPRAZolam [Xanax TAB] 0.5 mg PO TID PRN #14 tab 07/01/18 Unknown Rx Aspirin EC [Aspirin Enteric Coated 81 mg PO QDAY #30 tablet 07/01/18 Unknown Rx TAB] AtorvaSTATin [Lipitor] 40 mg PO QHS #30 tablet 07/01/18 Unknown Rx Pantoprazole [Protonix TAB] 40 mg PO QDAY #30 tablet 07/01/18 Unknown Rx dilTIAZem [Cardizem] 60 mg PO Q8HR #30 tablet 07/01/18 Unknown Rx Active Medications: Generic Name Dose Route Start Last Admin Trade Name Freq PRN Reason Stop Dose Admin Acetaminophen 650 mg 06/29/18 01:39 Tylenol PO Q4H PRN Pain MILD(1-3)/Fever >100.5/KEVIN Alprazolam 1 mg 07/02/18 14:00 07/03/18 10:23 Xanax PO 1 mg Q8HR PRN Administration Anxiety Aspirin 81 mg 06/30/18 13:00 07/02/18 18:14 Halfprin Ec PO Not Given QDAY JOSE ARMANDO Atorvastatin Calcium 40 mg 06/30/18 22:00 07/02/18 22:46 Lipitor PO 40 mg QHS JOSE ARMANDO Administration Diltiazem HCl 60 mg 06/30/18 14:00 07/03/18 06:08 Cardizem PO 60 mg Q8HR JOSE ARMANDO Administration Heparin Sodium (Porcine) 1,000 unit 06/29/18 09:54 06/29/18 15:00 Heparin 10,000 Units/10 Ml IV 1,000 unit LAZARA PRN Administration hemodialysis Heparin Sodium (Porcine) 5,000 unit 06/30/18 13:00 07/03/18 10:20 Heparin SUB-Q Not Given Q12HR JOSE ARMANDO Sodium Chloride 100 mls @ 999 mls/hr 07/01/18 10:00 Nacl 0.9% IV LAZARA PRN Hypotension Lidocaine 1 applic 07/03/18 13:00 07/03/18 12:40 Xylocaine Topical 2% 30ml TP 1 applic ONCE PRN Administration 30 minutes before HD Ondansetron HCl 4 mg 06/29/18 01:39 06/29/18 20:13 Zofran IV 4 mg Q8H PRN Administration Nausea And Vomiting Pantoprazole Sodium 40 mg 06/30/18 13:00 07/02/18 18:14 Protonix PO Not Given QDAY JOSE ARMANDO Sodium Chloride 10 ml 06/29/18 10:00 07/03/18 12:14 Sodium Chloride Flush Syringe 10 Ml IV Not Given BID JOSE ARMANDO Sodium Chloride 10 ml 06/29/18 01:39 Sodium Chloride Flush Syringe 10 Ml IV PRN PRN LINE FLUSH
--- NOTE | 2018-07-03 16:02 | Progress Note ---
Assessment and Plan A. fib with RVR - start low dose beta christa 25 Q6 for rate control, then changed to cardizem 60mg q8h - No oral anticoagulation for given compliance issue, possible underlying dementia and risk of fall - Cardiology consulted, 2-D echo showed Ef 30-35% Fluid overload, due to missing dialysis and underlying CHF - Nephrology consulted, s/p emergent HD End-stage renal disease on dialysis -HD per renal Hypertension, continue Cardizem Diabetes, SSI and consistent carb diet Fever 100.4 ( at dialysis), resolved, cont to monitor Cardiomyopathy EF 30-35% - cont aspirin, statin GERD, continue PPI Glaucoma, pt asymptomatic Disposition: patient refused to go [facility], he wants to go home but family unable to take care for him and no one lives at his house now. 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 patient is legally blind and unable to do his ADL, but he keeps insisting to go home. Consulted psych to assess patient's medical decision making ability. Brief history: This is a 87-year-old man with a history of hypertension, diabetes, end-stage renal disease was sent to the emergency room for evaluation. He states that he had not had dialysis and 1 week. In the emergency room he was found to be in A. fib with RVR, responsive to Cardizem. Patient was admitted for further evaluation and management. Physical exam: GENERAL: well-developed and well-nourished -Mongolian male lying on bed appeared agitated. HEENT: Normocephalic. Atraumatic. No conjunctival congestion or icterus. Patient has moist mucous membranes. 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 Trachea midline. CHEST/LUNGS: Clear to auscultated bilaterally, breathing nonlabored. No wheezes crackles or rhonchi. HEART/CARDIOVASCULAR: Regular in rate and rhythm. S1 and S2 positive. ABDOMEN: Abdomen is soft, nontender. Patient has normal bowel sounds. SKIN: There is no rash. Warm and dry. NEURO: No focal motor deficit. Follows command. MUSCULOSKELETAL: No joint effusion or tenderness. EXTRIMITY: No edema, no cyanosis or clubbing. PSYCH: Cooperative. but gets agitated when asked about discharge plan. Subjective Date of service: 07/03/18 Principal diagnosis: atrial fibrillation rapid ventricular response Interval history: Patient seen and examined. Medical records and medication list reviewed. No acute event overnight noted by the RN. Patient is tolerating diet. Discussed plan of care at bedside with patient. patient refusing to go to [facility] and insisting to go home transportation arranged twice but he refused to go with transportation Objective - Constitutional Vitals: Vital Signs - 12hr 07/03/18 07/03/18 07/03/18 06:07 06:08 08:19 Temperature 97.3 F L Pulse Rate 96 H 86 93 H Respiratory 20 24 Rate Blood Pressure 100/53 100/53 110/53 O2 Sat by Pulse 98 98 Oximetry 07/03/18 07/03/18 07/03/18 10:00 13:52 14:05 Temperature 98.2 F Pulse Rate 93 H 89 81 Respiratory 18 Rate Blood Pressure 108/59 106/41 O2 Sat by Pulse 98 Oximetry 07/03/18 07/03/18 07/03/18 14:15 14:30 14:45 Temperature Pulse Rate 75 91 H 95 H Respiratory Rate Blood Pressure 99/55 105/55 96/55 O2 Sat by Pulse Oximetry 07/03/18 07/03/18 07/03/18 15:00 15:15 15:30 Temperature Pulse Rate 88 78 90 Respiratory Rate Blood Pressure 104/46 97/48 96/39 O2 Sat by Pulse Oximetry 07/03/18 15:45 Temperature Pulse Rate 80 Respiratory Rate Blood Pressure 97/44 O2 Sat by Pulse Oximetry - Labs CBC & Chem 7: 06/30/18 00:19 07/01/18 06:01 Labs: Abnormal lab results 07/02/18 07/03/18 Range/Units 22:54 11:13 POC Glucose 172 H 171 H (70-105)
--- NOTE | 2018-07-03 16:02 | Progress Note ---
Assessment and Plan A. fib with RVR - start low dose beta christa 25 Q6 for rate control, then changed to cardizem 60mg q8h - No oral anticoagulation for given compliance issue, possible underlying dementia and risk of fall - Cardiology consulted, 2-D echo showed Ef 30-35% Fluid overload, due to missing dialysis and underlying CHF - Nephrology consulted, s/p emergent HD End-stage renal disease on dialysis -HD per renal Hypertension, continue Cardizem Diabetes, SSI and consistent carb diet Fever 100.4 ( at dialysis), resolved, cont to monitor Cardiomyopathy EF 30-35% - cont aspirin, statin GERD, continue PPI Glaucoma, pt asymptomatic Disposition: patient refused to go [facility], he wants to go home but family unable to take care for him. wait for family decision. Brief history: This is a 87-year-old man with a history of hypertension, diabetes, end-stage renal disease was sent to the emergency room for evaluation. He states that he had not had dialysis and 1 week. In the emergency room he was found to be in A. fib with RVR, responsive to Cardizem. Patient was admitted for further evaluation and management. Physical exam: GENERAL: well-developed and well-nourished -Prydeinig male lying on bed appeared agitated. HEENT: Normocephalic. Atraumatic. No conjunctival congestion or icterus. Patient has moist mucous membranes. 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 Trachea midline. CHEST/LUNGS: Clear to auscultated bilaterally, breathing nonlabored. No wheezes crackles or rhonchi. HEART/CARDIOVASCULAR: Regular in rate and rhythm. S1 and S2 positive. ABDOMEN: Abdomen is soft, nontender. Patient has normal bowel sounds. SKIN: There is no rash. Warm and dry. NEURO: No focal motor deficit. Follows command. MUSCULOSKELETAL: No joint effusion or tenderness. EXTRIMITY: No edema, no cyanosis or clubbing. PSYCH: not Cooperative. does not like to be interrupted Subjective Date of service: 07/02/18 Principal diagnosis: atrial fibrillation rapid ventricular response Interval history: Patient seen and examined. Medical records and medication list reviewed. No acute event overnight noted by the RN. Patient is tolerating diet. Discussed plan of care at bedside with patient's Son. patient refusing to go to [facility] Objective - Constitutional Vitals: Vital Signs - 12hr 07/03/18 07/03/18 07/03/18 06:07 06:08 08:19 Temperature 97.3 F L Pulse Rate 96 H 86 93 H Respiratory 20 24 Rate Blood Pressure 100/53 100/53 110/53 O2 Sat by Pulse 98 98 Oximetry 07/03/18 07/03/18 07/03/18 10:00 13:52 14:05 Temperature 98.2 F Pulse Rate 93 H 89 81 Respiratory 18 Rate Blood Pressure 108/59 106/41 O2 Sat by Pulse 98 Oximetry 07/03/18 07/03/18 07/03/18 14:15 14:30 14:45 Temperature Pulse Rate 75 91 H 95 H Respiratory Rate Blood Pressure 99/55 105/55 96/55 O2 Sat by Pulse Oximetry 07/03/18 07/03/18 07/03/18 15:00 15:15 15:30 Temperature Pulse Rate 88 78 90 Respiratory Rate Blood Pressure 104/46 97/48 96/39 O2 Sat by Pulse Oximetry - Labs CBC & Chem 7: 06/30/18 00:19 07/01/18 06:01 Labs: Abnormal lab results 07/02/18 07/03/18 Range/Units 22:54 11:13 POC Glucose 172 H 171 H (70-105)
[2018-07-03] MEDS: HEPARIN 10,000 UNITS/10 ML IV PRN (16:31)
[2018-07-03] MEDS ORDERED: NACL 0.9 (PRIMING MACHINE ONLY DIALYSIS) MC ONE (16:50)
[2018-07-03] MEDS: PROTONIX PO SCH (21:29)
[2018-07-03] MEDS: HALFPRIN EC PO SCH (21:29)
[2018-07-04] MEDS: CARDIZEM PO SCH ×3 (06:22→22:32)
[2018-07-04] MEDS: HEPARIN SUB-Q SCH ×2 (10:31→22:33)
[2018-07-04] MEDS: HALFPRIN EC PO SCH (10:31)
[2018-07-04] MEDS: PROTONIX PO SCH (10:31)
[2018-07-04] MEDS: SODIUM CHLORIDE FLUSH SYRINGE 10 ML IV SCH ×2 (10:31→22:33)
--- NOTE | 2018-07-04 13:02 | Progress Note ---
Assessment and Plan - Patient Problems (1) ESRD (end stage renal disease) Current Visit: Yes Status: Acute Plan to address problem: Cont HD on Sunday, Wednesdays and Fridays. (2) Hypertensive chronic kidney disease with stage 5 chronic kidney disease or end stage renal disease Current Visit: Yes Status: Acute Plan to address problem: Follow-up blood pressure on current medications (3) Type 2 diabetes mellitus with diabetic chronic kidney disease Current Visit: Yes Status: Acute Plan to address problem: Blood sugar management by primary attending (4) Atrial fibrillation with RVR Current Visit: Yes Status: Acute Plan to address problem: Rate control by spinning doffer. (5) Poor social situation Current Visit: Yes Status: Acute Plan to address problem: Awaiting placement. Patient accepted at [facility] dialysis Subjective Date of service: 07/04/18 Principal diagnosis: atrial fibrillation rapid ventricular response Interval history: Pt awake alert, in NAD Objective - Vital Signs Vital signs: Vital Signs - 12hr 07/04/18 07/04/18 07/04/18 02:00 06:22 07:15 Temperature 97.6 F 98.0 F Pulse Rate 78 117 H 79 Respiratory 20 20 Rate Blood Pressure 99/33 121/68 97/42 O2 Sat by Pulse 95 99 Oximetry - General Appearance General appearance: well-developed, well-nourished, appears stated age EENT: ATNC, mucous membranes moist Neck: no JVD Respiratory: Present: Clear to Ascultation Cardiology: regular, S1S2 Gastrointestinal: normoactive bowel sounds Integumentary: no rash, other (no edema ) Neurologic: no focal deficit, alert and oriented x3, strength 5/5, CN 3-12 intact Psychiatric: mood/affect appropriate, cooperative - Lab 06/30/18 00:19 07/01/18 06:01 Most recent lab results Calcium 9.1 mg/dL (8.4-10.2) 07/01/18 06:01 Magnesium 1.90 mg/dL (1.7-2.3) 06/28/18 17:27 Medications & Allergies - Medications Allergies/Adverse Reactions: Allergies No Known Allergies Allergy (Unverified 06/28/18 16:17) Home Medications: Home Medications Medication Instructions Recorded Confirmed Last Taken Type ALPRAZolam [Xanax TAB] 0.5 mg PO TID PRN #14 tab 07/01/18 Unknown Rx Aspirin EC [Aspirin Enteric Coated 81 mg PO QDAY #30 tablet 07/01/18 Unknown Rx TAB] AtorvaSTATin [Lipitor] 40 mg PO QHS #30 tablet 07/01/18 Unknown Rx Pantoprazole [Protonix TAB] 40 mg PO QDAY #30 tablet 07/01/18 Unknown Rx dilTIAZem [Cardizem] 60 mg PO Q8HR #30 tablet 07/01/18 Unknown Rx Active Medications: Generic Name Dose Route Start Last Admin Trade Name Freq PRN Reason Stop Dose Admin Acetaminophen 650 mg 06/29/18 01:39 07/03/18 23:43 Tylenol PO 650 mg Q4H PRN Administration Pain MILD(1-3)/Fever >100.5/KEVIN Alprazolam 1 mg 07/02/18 14:00 07/03/18 23:42 Xanax PO 1 mg Q8HR PRN Administration Anxiety Aspirin 81 mg 06/30/18 13:00 07/04/18 10:31 Halfprin Ec PO 81 mg QDAY JOSE ARMANDO Administration Atorvastatin Calcium 40 mg 06/30/18 22:00 07/03/18 21:23 Lipitor PO 40 mg QHS JOSE ARMANDO Administration Diltiazem HCl 60 mg 06/30/18 14:00 07/04/18 06:22 Cardizem PO 60 mg Q8HR JOSE ARMANDO Administration Heparin Sodium (Porcine) 1,000 unit 06/29/18 09:54 07/03/18 16:31 Heparin 10,000 Units/10 Ml IV 1,000 unit LAZARA PRN Administration hemodialysis Heparin Sodium (Porcine) 5,000 unit 06/30/18 13:00 07/04/18 10:31 Heparin SUB-Q 5,000 unit Q12HR JOSE ARMANDO Administration Sodium Chloride 100 mls @ 999 mls/hr 07/01/18 10:00 Nacl 0.9% IV LAZARA PRN Hypotension Lidocaine 1 applic 07/03/18 13:00 07/03/18 12:40 Xylocaine Topical 2% 30ml TP 1 applic ONCE PRN Administration 30 minutes before HD Ondansetron HCl 4 mg 06/29/18 01:39 06/29/18 20:13 Zofran IV 4 mg Q8H PRN Administration Nausea And Vomiting Pantoprazole Sodium 40 mg 06/30/18 13:00 07/04/18 10:31 Protonix PO 40 mg QDAY JOSE ARMANDO Administration Sodium Chloride 10 ml 01/05/19 10:00 07/04/18 10:31 Sodium Chloride Flush Syringe 10 Ml IV 10 ml BID JOSE ARMANDO Administration Sodium Chloride 10 ml 06/29/18 01:39 Sodium Chloride Flush Syringe 10 Ml IV PRN PRN LINE FLUSH
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
[2018-07-04] MEDS: HumuLIN R SUB-Q SCH ×2 (17:12→22:35)
[2018-07-05] MEDS: CARDIZEM PO SCH ×2 (06:19→14:31)
--- NOTE | 2018-07-05 08:41 | Progress Note ---
Assessment and Plan - Patient Problems (1) ESRD (end stage renal disease) Current Visit: Yes Status: Acute Plan to address problem: Cont HD on Sunday, Wednesdays and Fridays. (2) Hypertensive chronic kidney disease with stage 5 chronic kidney disease or end stage renal disease Current Visit: Yes Status: Acute Plan to address problem: Follow-up blood pressure on current medications (3) Type 2 diabetes mellitus with diabetic chronic kidney disease Current Visit: Yes Status: Acute Plan to address problem: Blood sugar management by primary attending (4) Atrial fibrillation with RVR Current Visit: Yes Status: Acute Plan to address problem: Rate control by aircraft layout worker. (5) Poor social situation Current Visit: Yes Status: Acute Plan to address problem: Awaiting placement. Patient accepted at [facility] dialysis Subjective Date of service: 07/05/18 Principal diagnosis: atrial fibrillation rapid ventricular response Interval history: Pt awake alert, in NAD Objective - Vital Signs Vital signs: Vital Signs - 12hr 07/04/18 07/04/18 07/05/18 22:00 22:32 02:53 Temperature 98.6 F Pulse Rate 86 81 Respiratory 18 20 Rate Blood Pressure 160/64 153/77 O2 Sat by Pulse 98 98 Oximetry 07/05/18 07/05/18 07/05/18 06:18 06:19 07:42 Temperature 98.2 F 98.4 F Pulse Rate 62 96 H Respiratory 18 18 Rate Blood Pressure 144/65 144/65 149/75 O2 Sat by Pulse 97 Oximetry - General Appearance General appearance: well-developed, well-nourished, appears stated age EENT: ATNC, PERRL, mucous membranes moist Neck: no JVD Respiratory: Present: Clear to Ascultation Cardiology: regular, S1S2 Gastrointestinal: normoactive bowel sounds Integumentary: no rash, other (no edema ) Neurologic: no focal deficit, strength 5/5, CN 3-12 intact Psychiatric: mood/affect appropriate, cooperative - Lab 06/30/18 00:19 07/01/18 06:01 Most recent lab results Calcium 9.1 mg/dL (8.4-10.2) 07/01/18 06:01 Magnesium 1.90 mg/dL (1.7-2.3) 06/28/18 17:27 Medications & Allergies - Medications Allergies/Adverse Reactions: Allergies No Known Allergies Allergy (Unverified 06/28/18 16:17) Home Medications: Home Medications Medication Instructions Recorded Confirmed Last Taken Type ALPRAZolam [Xanax TAB] 0.5 mg PO TID PRN #14 tab 07/01/18 Unknown Rx Aspirin EC [Aspirin Enteric Coated 81 mg PO QDAY #30 tablet 07/01/18 Unknown Rx TAB] AtorvaSTATin [Lipitor] 40 mg PO QHS #30 tablet 07/01/18 Unknown Rx Pantoprazole [Protonix TAB] 40 mg PO QDAY #30 tablet 07/01/18 Unknown Rx dilTIAZem [Cardizem] 60 mg PO Q8HR #30 tablet 07/01/18 Unknown Rx Active Medications: Generic Name Dose Route Start Last Admin Trade Name Freq PRN Reason Stop Dose Admin Acetaminophen 650 mg 06/29/18 01:39 07/03/18 23:43 Tylenol PO 650 mg Q4H PRN Administration Pain MILD(1-3)/Fever >100.5/KEVIN Alprazolam 1 mg 07/02/18 14:00 07/03/18 23:42 Xanax PO 1 mg Q8HR PRN Administration Anxiety Aspirin 81 mg 06/30/18 13:00 07/04/18 10:31 Halfprin Ec PO 81 mg QDAY JOSE ARMANDO Administration Atorvastatin Calcium 40 mg 06/30/18 22:00 07/04/18 22:32 Lipitor PO 40 mg QHS JOSE ARMANDO Administration Diltiazem HCl 60 mg 06/30/18 14:00 07/05/18 06:19 Cardizem PO 60 mg Q8HR JOSE ARMANDO Administration Heparin Sodium (Porcine) 1,000 unit 06/29/18 09:54 07/03/18 16:31 Heparin 10,000 Units/10 Ml IV 1,000 unit LAZARA PRN Administration hemodialysis Heparin Sodium (Porcine) 5,000 unit 06/30/18 13:00 07/04/18 22:33 Heparin SUB-Q 5,000 unit Q12HR JOSE ARMANDO Administration Sodium Chloride 100 mls @ 999 mls/hr 07/01/18 10:00 Nacl 0.9% IV LAZARA PRN Hypotension Insulin Human Regular 0 units 07/04/18 16:30 07/04/18 22:35 Humulin R SUB-Q Not Given ACHS [facility] Protocol Lidocaine 1 applic 07/03/18 13:00 07/03/18 12:40 Xylocaine Topical 2% 30ml TP 1 applic ONCE PRN Administration 30 minutes before HD Ondansetron HCl 4 mg 06/29/18 01:39 06/29/18 20:13 Zofran IV 4 mg Q8H PRN Administration Nausea And Vomiting Pantoprazole Sodium 40 mg 06/30/18 13:00 07/04/18 10:31 Protonix PO 40 mg QDAY JOSE ARMANDO Administration Sodium Chloride 10 ml 06/29/18 10:00 07/04/18 22:33 Sodium Chloride Flush Syringe 10 Ml IV 10 ml BID JOSE ARMANDO Administration Sodium Chloride 10 ml 06/29/18 01:39 Sodium Chloride Flush Syringe 10 Ml IV PRN PRN LINE FLUSH
[2018-07-05] MEDS: HumuLIN R SUB-Q SCH ×2 (09:45→14:31)
[2018-07-05] MEDS: HALFPRIN EC PO SCH (09:46)
[2018-07-05] MEDS: HEPARIN SUB-Q SCH (09:46)
[2018-07-05] MEDS: PROTONIX PO SCH (09:46)
[2018-07-05] MEDS: SODIUM CHLORIDE FLUSH SYRINGE 10 ML IV SCH (09:47)
[2018-07-05] MEDS: XYLOCAINE TOPICAL 2% 30ML TP PRN (10:10)
--- NOTE | 2018-07-05 13:34 | Progress Note ---
Assessment and Plan A. fib with RVR - start low dose beta christa 25 Q6 for rate control, then changed to cardizem 60mg q8h - No oral anticoagulation for given compliance issue, possible underlying dementia and risk of fall - Cardiology consulted, 2-D echo showed Ef 30-35% Fluid overload, due to missing dialysis and underlying CHF - Nephrology consulted, s/p emergent HD End-stage renal disease on dialysis -HD per renal Hypertension, continue Cardizem Diabetes, SSI and consistent carb diet Fever 100.4 ( at dialysis), resolved, cont to monitor Cardiomyopathy EF 30-35% - cont aspirin, statin GERD, continue PPI Glaucoma, pt asymptomatic Disposition: patient refused to go [facility], he wants to go home but family unable to take care for him and no one lives at his house now. 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 patient is legally blind and unable to do his ADL, but he keeps insisting to go home. Consulted psych to assess patient's medical decision making ability. Noted psych eval note and agree with them in terms of his discharge planning. patient does understand and knows about his medical issues. He was asked if he understand what might happen if he miss his HD, he stated " I am on dialysis for 6 years and I know I will if I cannot get my dialysis done." He was asked how he is planning on going for dialysis he stated that transportation service will take him there and he was going to his dialysis center prior going to [facility] by transportation arrangement with medicare. Discussed with SW/CM, now waiting for family/Son to arrange for his discharge to his home. Brief history: This is a 87-year-old man with a history of hypertension, diabetes, end-stage renal disease was sent to the emergency room for evaluation. He states that he had not had dialysis and 1 week. In the emergency room he was found to be in A. fib with RVR, responsive to Cardizem. Patient was admitted for further evaluation and management. Physical exam: GENERAL: well-developed and well-nourished -[place] male lying on bed appeared agitated. HEENT: Normocephalic. Atraumatic. No conjunctival congestion or icterus. Patient has moist mucous membranes. 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 Trachea midline. CHEST/LUNGS: Clear to auscultated bilaterally, breathing nonlabored. No wheezes crackles or rhonchi. HEART/CARDIOVASCULAR: Regular in rate and rhythm. S1 and S2 positive. ABDOMEN: Abdomen is soft, nontender. Patient has normal bowel sounds. SKIN: There is no rash. Warm and dry. NEURO: No focal motor deficit. Follows command. MUSCULOSKELETAL: No joint effusion or tenderness. EXTRIMITY: No edema, no cyanosis or clubbing. PSYCH: Cooperative. but gets agitated when asked about discharge plan. Subjective Date of service: 07/04/18 Principal diagnosis: atrial fibrillation rapid ventricular response Interval history: Patient seen and examined. Medical records and medication list reviewed. No acute event overnight noted by the RN. Patient is tolerating diet. Discussed plan of care at bedside with patient. patient refusing to go to [facility] and insisting to go home transportation arranged X3, but he refused to go with transportation Spoke with daughter this morning and plan of care explained Objective - Constitutional Vitals: Vital Signs - 12hr 07/05/18 07/05/18 07/05/18 02:53 06:18 06:19 Temperature 98.6 F 98.2 F Pulse Rate 81 62 Respiratory 20 18 Rate Blood Pressure 153/77 144/65 144/65 O2 Sat by Pulse 98 Oximetry 07/05/18 07/05/18 07:42 10:00 Temperature 98.4 F Pulse Rate 96 H Respiratory 18 18 Rate Blood Pressure 149/75 O2 Sat by Pulse 97 97 Oximetry - Labs CBC & Chem 7: 06/30/18 00:19 07/01/18 06:01 Labs: Abnormal lab results 07/04/18 07/04/18 07/05/18 Range/Units 16:59 22:37 07:42 POC Glucose 165 H 147 H 117 H (70-105)
[2018-07-05 13:53] VITALS: BP 137/63
== END 2018-07-05 19:00 | disposition home health service (06) | DRG 640 ==
LOC: ED 15:26 → OBSVTOIN 19:45 → 4A 19:45 → 2B-ACE 07-03 18:24
PROVIDERS: ADMIT Internal Medicine; ATTEND Internal Medicine
PROC: 5A1D70Z Performance of Urinary Filtration, Intermittent, Less than 6 Hours Per Day (ICD-10-PCS; principal; 2018-06-29)
PROC: 5A1D70Z Performance of Urinary Filtration, Intermittent, Less than 6 Hours Per Day (ICD-10-PCS; 2018-07-01)
PROC: 5A1D70Z Performance of Urinary Filtration, Intermittent, Less than 6 Hours Per Day (ICD-10-PCS; 2018-07-03)
PROC: 5A1D70Z Performance of Urinary Filtration, Intermittent, Less than 6 Hours Per Day (ICD-10-PCS; 2018-07-05)
DX: E87.70 Fluid overload, unspecified (principal); N18.6 End stage renal disease; J96.10 Chronic respiratory failure, unspecified whether with hypoxia or hypercapnia; I13.11 Hypertensive heart and chronic kidney disease without heart failure, with stage 5 chronic kidney disease, or end stage renal disease; I42.9 Cardiomyopathy, unspecified; I48.91 Unspecified atrial fibrillation; E11.22 Type 2 diabetes mellitus with diabetic chronic kidney disease; K21.9 Gastro-esophageal reflux disease without esophagitis; F10.10 Alcohol abuse, uncomplicated; Y90.0 Blood alcohol level of less than 20 mg/100 ml; F03.90 Unspecified dementia, unspecified severity, without behavioral disturbance, psychotic disturbance, mood disturbance, and anxiety; H40.9 Unspecified glaucoma; H54.8 Legal blindness, as defined in USA; Z83.3 Family history of diabetes mellitus; Z95.828 Presence of other vascular implants and grafts; Z99.2 Dependence on renal dialysis; Z79.82 Long term (current) use of aspirin; Z79.899 Other long term (current) drug therapy; Z79.01 Long term (current) use of anticoagulants; Z87.891 Personal history of nicotine dependence; Z72.89 Other problems related to lifestyle; Z82.3 Family history of stroke; Z79.84 Long term (current) use of oral hypoglycemic drugs
CPT/HCPCS: 36415; 70450; 71045; 74176; 80048; 80061; 80074; 81001; 82550; 82553; 82962; 83735; 84443; 84484; 85025; 85027; 85610; 86850; 86900; 86901; 87086; 93005; 93010; 93306; 96374; 96376; G0378; A9270-GY; J1644; J2405; J7030